=== PATIENT | male | born 1970 | race Caucasian/White ===

== ENCOUNTER 2020-02-13 03:49 | Emergency (ER) | payer OTHER ==
[~2020-02-13] VITALS: Ht 175.3 cm; Wt 102.1 kg
[~2020-02-13 03:49] MED LIST: AMOX1TAB12 PO; TUSSI PRES-B L120 M1 PO; TUSSIONEX PENNKI5 ML PO
[2020-02-13] MEDS ORDERED: TAMS0.4C PO (07:58)
[2020-02-13] MEDS ORDERED: KETO10TA2 PO (07:58)
[2020-02-13] MEDS ORDERED: PYRIDIUM DS200 MG PO (07:58)
[2020-02-13] MEDS ORDERED: ONDANSETRON ODT4 MG PO (07:58)
== END 2020-02-13 08:00 | disposition home or self-care (01) ==
LOC: ER 03:49
DX: N20.2 Calculus of kidney with calculus of ureter (principal); R30.0 Dysuria